=== PATIENT | male | born 1980 | race Caucasian/White ===

== ENCOUNTER 2017-06-29 08:22 | Emergency (ER) | payer MEDICAID ==
[~2017-06-29] VITALS: Wt 64.6 kg
[~2017-06-29 08:22] MED LIST: BENZ1LOZ52 MM; HYDR-3498 PO; IBUP-1542 PO; PENI500T PO
--- NOTE | 2017-06-29 08:36 | ERD ---
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 Patient describes diffuse lumbar back pain, there is one area in the midline but most of his pain is on the lateral portions. It is described as achy, diffuse, worse with movement and better with rest or sitting. He denies any radicular symptoms, swelling to his lower extremities, fevers, chills, IV drug abuse or trauma. He denies saddle anesthesia loss of bowel bladder function. ROS All systems reviewed and are negative except as per history of present illness. Medications Home Meds Active Scripts Ibuprofen* (Motrin*) 600 Mg Tab, 600 MG PO Q6, #30 TAB Prov:MISAEL WILLIAMSON PA-C 06/29/17 Benzocaine/Menthol* (Cepacol* Sore Throat Lozenges) 1 Each Lozenge, 1 EACH MM q2h Y for SORE THROAT, #30 LOZENGE Prov:SOCO DIAZ PA-C 07/28/15 Ibuprofen* (Ibuprofen*) 600 Mg Tablet, 600 MG PO Q6, #30 TAB Prov:SOCO DIAZ PA-C 07/28/15 Hydrocodone Bit-Acetaminophen* ([place]*) 5-325 Mg Tab, 1 TAB PO Q4H Y for PAIN, # 6 TAB Prov:SOCO DIAZ PA-C 07/28/15 Penicillin V Potassium* (Penicillin V K*) 500 Mg Tab, 500 MG PO BID for 10 Days , TAB Prov:SOCO DIAZ PA-C 07/28/15 Allergies Allergies: Coded Allergies: No Known Drug Allergies (Verified Allergy, 09/26/12) PMhx/Soc History of Surgery: No Anesthesia Reaction: No Hx Neurological Disorder: No Hx Respiratory Disorders: No Hx Cardiac Disorders: No Hx Psychiatric Problems: No Hx Alcohol Use: Yes Hx Substance Use: No Hx Tobacco Use: Yes Physical Exam Vitals Vital Signs Date Time Temp Pulse Resp B/P Pulse Ox O2 Delivery O2 Flow Rate FiO2 06/29/17 08:24 98.4 73 20 121/66 99 Physical Exam General: Well-developed, well-nourished. The patient appears in no acute distress. HEENT: Head is normocephalic, atraumatic. No scleral icterus. Neck: Supple. Nontender. Lungs: Clear to auscultation. Normal air movement. Heart: Regular rate and rhythm. S1 and S2 are normal. No murmurs, gallops, or rubs. Abdomen: Soft, nontender, nondistended. Bowel sounds are normoactive. Back: There is L4-L5 tenderness, paraspinal tenderness on the bilateral regions. No rashes, no step-offs, strength to lower extremities 5 out of 5 bilaterally, gait is normal. Extremities: No clubbing or cyanosis. Normal pulses. Moving extremities x 4. No weakness. Neurologic: Alert and oriented 3. No focal deficits. Skin: Normal turgor. No rash or lesions. Results 24 hrs DIAGNOSTIC IMAGING REPORT Patient: JANE CABRAL : 1980 Age: 36 Sex: M MR #: [id number] DOS: 06/29/17 0834 Ordering MD: MISAEL WILLIAMSON PA-C Location: [facility] Room/Bed: PROCEDURE: XR Lumbar Spine. CLINICAL INDICATION: Lumbar spine pain. TECHNIQUE: AP, lateral, and cone-down lateral view of the lumbar spine were obtained. COMPARISON: No prior studies are available for comparison. FINDINGS: The alignment of the lumbar spine is within normal limits. The vertebral body heights and marrow density are normal in appearance. There is preservation of the intervertebral disc spaces. There is mild to moderate facet spondylosis at L5-S1 with possible neural foraminal narrowing at this level. The remaining neural foramina appear patent. The paraspinal soft tissues unremarkable. The posterior elements are unremarkable. IMPRESSION: 1. Mild to moderate facet spondylosis at L5-S1 with possible neural foraminal narrowing at this level. 2. No evidence of fracture or significant degenerative disc disease. RPTAT: AAQQ .Kwabena Long MD, Date Time Electronically viewed and signed by .Kwabena Long MD, on 06/29/2017 09: 04 .S/ CC: MISAEL WILLIAMSON PA-C Current Medications Medications (Trade) Dose Ordered Sig/[facility] Route PRN Reason Start Time Stop Time Status Last Admin Dose Admin Ibuprofen (Motrin) 600 mg ONCE ONCE PO 06/29/17 09:00 06/29/17 09:01 DC 06/29/17 08:39 Procedures/MDM Medical decision makin-year-old male presents with low back pain for 1 week , patient's differential diagnosis includes spondylolisthesis, spondylosis, disc herniation, lumbar radiculopathy, strain, sprain, epidural abscess, epidural hematoma, cauda equina, discitis, and among others. X-ray of the lumbar spine shows no acute fractures, the patient has evidence of spondylosis at the L5-S1 region, with possible disc involvement. This is consistent with the patient's pain on examination. He will be advised to do ibuprofen for pain , take caution with lifting as he works in construction. He has been asked to follow-up with his primary care doctor for physical therapy if he needs in the future. Departure Diagnosis: Primary Impression: Back pain Condition: Good MISAEL WILLIAMSON PA-C Jun 29, 2017 08:36
[2017-06-29] MEDS ORDERED: IBUPROFEN 600 MG TAB PO ONE (09:00)
--- NOTE | 2017-06-29 09:04 | RADRPT ---
PROCEDURE: XR Lumbar Spine. CLINICAL INDICATION: Lumbar spine pain. TECHNIQUE: AP, lateral, and cone-down lateral view of the lumbar spine were obtained. COMPARISON: No prior studies are available for comparison. FINDINGS: The alignment of the lumbar spine is within normal limits. The vertebral body heights and marrow de nsity are normal in appearance. There is preservation of the intervertebral disc spaces. There is mild to moderate facet spondylosis at L5-S1 with possible neural foraminal narrowing at this level. The remaining neural foramina appear patent. The paraspinal soft tissues unremarkable. The collection systems modeler ior elements are unremarkable. IMPRESSION: 1. Mild to moderate facet spondylosis at L5-S1 with possible neural foraminal narrowing at this lev el. 2. No evidence of fracture or significant degenerative disc disease. RPTAT: AAQQ .Kwabena Long MD, MD Date Time Electronically viewed and signed by .Kwabena Long MD, on 06/29/2017 09:04 .S/
[2017-06-29] MEDS ORDERED: IBUP-1542 PO (09:14)
== END 2017-06-29 09:21 | disposition home or self-care (01) ==
LOC: FTE 08:22
DX: M54.5 Low back pain (principal); Z87.891 Personal history of nicotine dependence
CPT/HCPCS: 72100; Z7502; Z7610

== ENCOUNTER 2018-04-05 08:54 | Emergency (ER) | END 2018-04-05 09:44 | disposition home or self-care (01) ==